=== PATIENT | male | born 1975 | race Caucasian/White ===

== ENCOUNTER 2017-11-26 10:37 | Emergency (ER) | payer OTHER ==
[~2017-11-26] VITALS: Ht 177.8 cm; Wt 118.4 kg
[2017-11-26 10:46] VITALS: Ht 177.8 cm; Wt 118.4 kg
[2017-11-26 13:58] VITALS: BP 130/75
== END 2017-11-26 16:40 | disposition home or self-care (01) ==
LOC: ED 10:37
DX: F07.81 Postconcussional syndrome (principal); H11.30 Conjunctival hemorrhage, unspecified eye